=== PATIENT | female | born 1995 | race Caucasian/White ===

== ENCOUNTER → 2020-02-10 | Outpatient (CLI) | payer OTHER ==
[~2020-02-10] MED LIST: ISOVUE-300 61% 50ML VIAL As Ordered ONE; LIDOCAINE 1% MDV 20ML VIAL As Ordered ONE; TRIAMCINOLONE ACETONIDE SUSP 40 MG/ML VIAL (J3301) As Ordered ONE
--- NOTE | 2020-02-10 13:00 | REP ---
INDICATION: SPRAIN OF RT HIP. COMPARISON: None. TECHNIQUE: Intraoperative fluoroscopic imaging using portable C-arm technique FINDINGS: Catheter for injection overlies the femoral neck. Total fluoroscopic time 0.1 minutes. IMPRESSION: Catheter overlies femoral neck. <Electronically signed by Joaquin Damian > 02/10/20 [id number]
== END ==
LOC: M RADPRO 12:05
DX: S73.101D Unspecified sprain of right hip, subsequent encounter (principal)
CPT/HCPCS: 20610; 77002; J3301; Q9967